=== PATIENT | female | born 2000 | race Hispanic/Latino ===

== ENCOUNTER 2018-09-17 20:24 | Emergency (ER) | payer OTHER, SELFPAY ==
[2018-09-17] MEDS ORDERED: KETOROLAC 30 MG/ML INJ ONE (21:03)
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
== END 2018-09-17 22:03 | disposition home or self-care (01) ==
LOC: ER 20:24
DX: S20.219A Contusion of unspecified front wall of thorax, initial encounter (principal); V49.9XXA Car occupant (driver) (passenger) injured in unspecified traffic accident, initial encounter
CPT/HCPCS: 71045; 96372; 99284